=== PATIENT | female | born 1970 | race African-American/Black ===

== ENCOUNTER 2020-09-07 20:01 | Emergency (ER) | payer OTHER ==
[~2020-09-07] VITALS: Ht 172.7 cm; Wt 108.9 kg
[2020-09-07] MEDS ORDERED: LIPITOR80 MG PO (22:03)
[2020-09-07] MEDS ORDERED: METFORMIN HCL500 M3 PO (22:03)
[2020-09-07] MEDS ORDERED: LEVO-T75 MCG PO (22:04)
[2020-09-07] MEDS ORDERED: COZAAR 25 MG TA25 M2 PO (22:04)
[2020-09-07] MEDS ORDERED: SUPER THERAVIT1 EACH PO (22:05)
[2020-09-07] MEDS ORDERED: LEXAPRO 10 MG T10 M1 PO (22:05)
[2020-09-07] MEDS ORDERED: NORVASC 2.5 MG2.5 M1 PO (22:05)
[2020-09-08 00:22] VITALS: BP 143/86
== END 2020-09-08 00:24 | disposition home or self-care (01) ==
LOC: ER 20:01
DX: R05 Cough (principal); R09.81 Nasal congestion; R51.9 Headache, unspecified; Z79.899 Other long term (current) drug therapy; Z20.828 Contact with and (suspected) exposure to other viral communicable diseases